=== PATIENT | male | born 1930 | race Caucasian/White ===

== ENCOUNTER 2020-07-18 09:09 | Outpatient (CLI) | payer MEDICARE | END 2020-07-18 09:10 | disposition home or self-care (01) | LOC: BICRAD 09:09 | PROVIDERS: ATTEND Family Medicine | DX: M54.5 Low back pain (principal); M47.816 Spondylosis without myelopathy or radiculopathy, lumbar region; Z13.820 Encounter for screening for osteoporosis; Z13.6 Encounter for screening for cardiovascular disorders; Z12.5 Encounter for screening for malignant neoplasm of prostate; Z13.29 Encounter for screening for other suspected endocrine disorder; R01.1 Cardiac murmur, unspecified | CPT/HCPCS: 72100; 80061; 81001; G0103; 36415; 80053; 84443; 85025 ==